=== PATIENT | female | born 1985 | race Caucasian/White ===

== ENCOUNTER 2017-03-11 08:17 | Emergency (ER) | payer MEDICARE, MEDICAID ==
[~2017-03-11] VITALS: Ht 157.5 cm; Wt 80.7 kg
[~2017-03-11 08:17] MED LIST: ADAL20KI; HYDR50CA2; LITHIUM; SERT25TA84
[2017-03-11] MEDS ORDERED: HYDROcodone-ACET 10/325MG TAB PO ONE (09:00)
[2017-03-11] MEDS ORDERED: LEVOFLOXACIN 500 MG TAB PO ONE (09:00)
[2017-03-11] MEDS ORDERED: MORPHINE SULF INJ 2 MG/ML SYRINGE 1ML IV ONE (12:30)
[2017-03-11] MEDS ORDERED: ONDANSETRON HCL 4 MG/2 ML VIAL IV ONE (12:30)
[2017-03-11 12:44] VITALS: BP 119/72
== END 2017-03-11 12:52 | disposition short-term general hospital (02) ==
LOC: ER 08:17 → EDBD 08:17 → ER 12:52
DX: S70.352A Superficial foreign body, left thigh, initial encounter (principal); F31.9 Bipolar disorder, unspecified; W22.8XXA Striking against or struck by other objects, initial encounter; Y93.89 Activity, other specified; Y99.8 Other external cause status; Y92.89 Other specified places as the place of occurrence of the external cause
CPT/HCPCS: 73502; 96374; 96375; 99285; J2270; J2405

== ENCOUNTER 2017-05-21 07:10 | Emergency (ER) | payer MEDICARE, MEDICAID ==
[~2017-05-21] VITALS: Ht 157.5 cm; Wt 79.8 kg
[2017-05-21 07:21] VITALS: BP 147/89
== END 2017-05-21 08:24 | disposition home or self-care (01) ==
LOC: ER 07:10
DX: J20.9 Acute bronchitis, unspecified (principal); F32.9 Major depressive disorder, single episode, unspecified; R11.10 Vomiting, unspecified

== ENCOUNTER 2017-07-26 12:40 | Observation (INO) | payer MEDICARE, MEDICAID ==
[~2017-07-26] VITALS: Ht 157.5 cm; Wt 90.7 kg
[2017-07-26] MEDS ORDERED: SODIUM CHLORIDE 0.9% 1,000 ML IVB ONE (13:49)
[2017-07-26] MEDS ORDERED: ONDANSETRON HCL 4 MG/2 ML VIAL IV ONE (14:00)
[2017-07-26 14:48] LABS: Basophils # (auto) 0 uL; Basophils % (auto) 0.1 % (0.0-2.0); Eosinophils # (auto) 0 uL; Hemoglobin 15.3 g/dL (12.2-16.2); Lymphocytes # (auto) 1.2 uL; Lymphocytes % (auto) 8.3 % (10.0-50.0); Mean Corpuscular Hgb Conc. 33.2 g/dL (32.0-36.0); Mean Corpuscular Volume 93.1 fL (80.0-100.0); Monocytes # (auto) 0.5 uL; Monocytes % (auto) 3.1 % (0.0-12.0); Neutrophils # (auto) 13.3 uL; Neutrophils % (auto) 88.5 % (37.0-80.0); Nucleated Red Blood Cells % 0.1 %; Platelet Count (auto) 305 10^3/uL (140-450); Red Blood Cells 4.93 10^6/uL (4.0-5.20); Red Cell Distribution Width 13.1 % (11.8-14.3); White Blood Cell 15.1 10^3/uL (4.4-10.8)
[2017-07-26 15:10] LABS: Albumin 4.1 g/dL (3.4-5.0); BUN/Creatinine Ratio 21.3; Bilirubin, Total 0.4 mg/dL (0.2-1.0); Calcium 9.3 mg/dL (8.5-10.1); Potassium 4.2 mmol/L (3.5-5.1); Total Protein 7.9 g/dL (6.4-8.2)
[2017-07-26] MEDS ORDERED: PANTOPRAZOLE 40 MG/10 ML VIAL IV ONE (15:45)
[2017-07-26] MEDS ORDERED: PROMETHAZINE HCL 25 MG/ML 1ML IV ONE (15:45)
[2017-07-26 16:05] VITALS: BP 115/69
[2017-07-26 16:15] LABS: Urine Bacteria NONE SEEN /hpf (None Seen); Urine Blood 2+ /uL (Negative); Urine Mucus FEW (None Seen); Urine Specific Gravity 1.028 (1.001-1.035); Urine WBC 10 /hpf (0 - 5)
[2017-07-26 16:30] LABS: Alcohol, Urine < 3.0 mg/dL (0-5); Amphetamine Screen, Urine NEGATIVE (NEGATIVE); Barbiturate Scree,Urine NEGATIVE (NEGATIVE); Benzodiazephine Screen, Urine NEGATIVE (NEGATIVE); Cannabinoid Screen, Urine POSITIVE (NEGATIVE); Cocaine Screen, Urine NEGATIVE (NEGATIVE); Opiate Scree,Urine NEGATIVE (NEGATIVE); Phencyclidine Screen, Urine NEGATIVE (NEGATIVE)
== END 2017-07-26 17:21 | disposition home or self-care (01) | DRG 392 ==
LOC: ER 12:40 → EDBD 12:40 → OVERFLOW 13:50 → ER 17:21
PROVIDERS: ADMIT Family Medicine; ATTEND Family Medicine
DX: R11.2 Nausea with vomiting, unspecified (principal); F10.20 Alcohol dependence, uncomplicated; F12.10 Cannabis abuse, uncomplicated; Z82.49 Family history of ischemic heart disease and other diseases of the circulatory system
CPT/HCPCS: 36415; 80053; 80307; 80320; 81001; 84702; 85025; 96361; 96374; 96375; 99285; C9113; G0378; J2405; J2550; J7030

== ENCOUNTER 2020-09-27 05:05 | Emergency (ER) | payer MEDICARE, MEDICAID ==
[~2020-09-27] VITALS: Ht 160 cm; Wt 75.7 kg
[2020-09-27] MEDS ORDERED: ONDANSETRON ODT 4 MG TAB PO ONE (06:00)
[2020-09-27] MEDS ORDERED: SODIUM CHLORIDE 0.9% 1,000 ML IV ONE (06:30)
[2020-09-27 08:02] LABS: Basophils # (auto) 0.1 10 ^3/uL (0-0.2); Basophils % (auto) 0.5 % (0.0-2.0); Eosinophils # (auto) 0.3 10 ^3/uL (0-0.8); Eosinophils % (auto) 1.9 % (0.0-7.0); Hematocrit 38.8 % (36.0-46.0); Lymphocytes # (auto) 2.6 10 ^3/uL (0.4-5.4); Lymphocytes % (auto) 19.1 % (10.0-50.0); Mean Corpuscular Hemoglobin 30.4 pg (28.0-32.0); Mean Corpuscular Hgb Conc. 33.6 g/dL (32.0-36.0); Mean Corpuscular Volume 90.6 fL (80.0-100.0); Monocytes # (auto) 0.7 10 ^3/uL (0-1.3); Monocytes % (auto) 5.5 % (0.0-12.0); Platelet Count (auto) 339 10^3/uL (140-450); Red Blood Cells 4.28 10^6/uL (4.0-5.20); Red Cell Distribution Width 14.7 % (11.8-14.3); White Blood Cell 13.7 10^3/uL (4.4-10.8)
[2020-09-27 08:20] LABS: Albumin 3.5 g/dL (3.4-5.0); Calcium 8.9 mg/dL (8.5-10.1); Magnesium 2.3 mg/dL (1.6-2.6)
[2020-09-27 08:23] LABS: BUN/Creatinine Ratio 31.8; Bilirubin, Total 0.2 mg/dL (0.2-1.0); Total Protein 6.7 g/dL (6.4-8.2)
[2020-09-27 08:38] LABS: Beta HCG, Quantitative < 1 mlU/mL (1-3)
[2020-09-27] MEDS ORDERED: HYDROcodone-ACET 5/325MG TAB PO ONE (09:30)
[2020-09-27] MEDS ORDERED: IOHEXOL 350 MG/ML 100ML IJ ONE (10:54)
[2020-09-27] MEDS ORDERED: diphenhdrAMINE HCL 50 MG/1 ML VL IV ONE (12:30)
[2020-09-27] MEDS ORDERED: DexAMETHasone SOD PHOS 4 MG/1ML SDV INJ IV ONE (12:30)
[2020-09-27 13:28] VITALS: BP 114/64
== END 2020-09-27 13:55 | disposition home or self-care (01) ==
LOC: ER 05:05
DX: S00.83XA Contusion of other part of head, initial encounter (principal); S50.02XA Contusion of left elbow, initial encounter; S80.01XA Contusion of right knee, initial encounter; F31.32 Bipolar disorder, current episode depressed, moderate; R55 Syncope and collapse; F17.210 Nicotine dependence, cigarettes, uncomplicated; W19.XXXA Unspecified fall, initial encounter; Y93.89 Activity, other specified; Y92.099 Unspecified place in other non-institutional residence as the place of occurrence of the external cause; Y99.8 Other external cause status
CPT/HCPCS: 36415; 70450; 70486; 71046; 71275; 72125; 73080; 73562; 80053; 83735; 84443; 84702; 85025; 85379; 93005; 96361; 96374; 96375; 99285; J1100; J1200; J7030; Q0162; Q9967

== ENCOUNTER 2020-10-09 06:39 | Emergency (ER) | payer MEDICARE, MEDICAID ==
[~2020-10-09] VITALS: Ht 157.5 cm; Wt 77.1 kg
[2020-10-09] MEDS ORDERED: ASPirin 81 mg TAB PO ONE (07:30)
[2020-10-09 08:07] LABS: Basophils # (auto) 0.1 10 ^3/uL (0-0.2); Basophils % (auto) 0.4 % (0.0-2.0); Eosinophils # (auto) 0.4 10 ^3/uL (0-0.8); Eosinophils % (auto) 1.8 % (0.0-7.0); Hematocrit 39.9 % (36.0-46.0); Hemoglobin 13.4 g/dL (12.2-16.2); Lymphocytes # (auto) 1.9 10 ^3/uL (0.4-5.4); Lymphocytes % (auto) 9.3 % (10.0-50.0); Mean Corpuscular Hemoglobin 30.5 pg (28.0-32.0); Mean Corpuscular Hgb Conc. 33.6 g/dL (32.0-36.0); Monocytes # (auto) 1.1 10 ^3/uL (0-1.3); Monocytes % (auto) 5.7 % (0.0-12.0); Neutrophils # (auto) 16.6 10 ^3/uL (1.6-8.6); Neutrophils % (auto) 82.8 % (37.0-80.0); Platelet Count (auto) 314 10^3/uL (140-450); Red Blood Cells 4.38 10^6/uL (4.0-5.20)
[2020-10-09 08:36] LABS: Albumin 3.3 g/dL (3.4-5.0); Anion Gap 6 (5-15); Blood Urea Nitrogen 15 mg/dL (7-18); Calcium 8.9 mg/dL (8.5-10.1); Carbon Dioxide 23 mmol/L (21-32); Chloride 110 mmol/L (98-107); Glucose 81 mg/dL (74-106); Potassium 3.8 mmol/L (3.5-5.1); Sodium 139 mmol/L (136-145)
[2020-10-09 08:43] LABS: Alanine Aminotransferase 14 U/L (13-56); Alkaline Phosphatase 90 U/L (45-117); Aspartate Aminotransferase 7 U/L (15-37); Bilirubin, Total 0.3 mg/dL (0.2-1.0); GFR African American 106 mL/min; GFR Non-African American 88 mL/min; Total Protein 6.6 g/dL (6.4-8.2)
[2020-10-09] MEDS ORDERED: levoFLOXacin 500MG 100 ML IV ONE (09:00)
[2020-10-09 09:55] LABS: Urine Bacteria NONE SEEN /hpf (None Seen); Urine Blood 3+ /uL (Negative); Urine Specific Gravity 1.018 (1.001-1.035); Urine WBC 2 /hpf (0 - 5)
[2020-10-09 10:32] VITALS: BP 118/73
== END 2020-10-09 10:38 | disposition home or self-care (01) ==
LOC: ER 06:39
DX: R07.89 Other chest pain (principal); F41.9 Anxiety disorder, unspecified; F17.210 Nicotine dependence, cigarettes, uncomplicated; Z88.1 Allergy status to other antibiotic agents
CPT/HCPCS: 36415; 71045; 80053; 81001; 84484; 85025; 93005; 96365; 99285; J1956

== ENCOUNTER 2022-01-17 15:13 | Emergency (ER) | payer MEDICARE, MEDICAID ==
[~2022-01-17] VITALS: Ht 160 cm; Wt 68.1 kg
[2022-01-17 16:35] LABS: Basophils # (auto) 0.1 10 ^3/uL (0-0.2); Hemoglobin 12.7 g/dL (12.2-16.2); Monocytes # (auto) 0.9 10 ^3/uL (0-1.3)
[2022-01-17 16:38] LABS: Basophils % (auto) 0.4 % (0.0-2.0); Eosinophils # (auto) 0.1 10 ^3/uL (0-0.8); Eosinophils % (auto) 0.7 % (0.0-7.0); Hematocrit 41.7 % (36.0-46.0); Lymphocytes # (auto) 2.3 10 ^3/uL (0.4-5.4); Lymphocytes % (auto) 15.3 % (10.0-50.0); Mean Corpuscular Hemoglobin 24.4 pg (28.0-32.0); Mean Corpuscular Hgb Conc. 30.5 g/dL (32.0-36.0); Monocytes % (auto) 5.9 % (0.0-12.0); Neutrophils # (auto) 11.6 10 ^3/uL (1.6-8.6); Neutrophils % (auto) 77.7 % (37.0-80.0); Red Blood Cells 5.21 10^6/uL (4.0-5.20); Red Cell Distribution Width 19.8 % (11.8-14.3); White Blood Cell 14.9 10^3/uL (4.4-10.8)
[2022-01-17 16:53] LABS: Albumin 4.6 g/dL (3.4-5.0); Calcium 9.3 mg/dL (8.5-10.1); Potassium 3.7 mmol/L (3.5-5.1)
[2022-01-17 16:56] LABS: BUN/Creatinine Ratio 25.5
[2022-01-17 16:58] LABS: Bilirubin, Total 0.5 mg/dL (0.2-1.0); Total Protein 8.9 g/dL (6.4-8.2)
[2022-01-17 18:32] LABS: Amphetamine Screen, Urine NEGATIVE (NEGATIVE)
[2022-01-17 18:33] LABS: Urine Bacteria NONE SEEN /hpf (None Seen); Urine Blood 3+ /uL (Negative); Urine Mucus FEW (None Seen); Urine Specific Gravity 1.042 (1.001-1.035); Urine WBC 2 /hpf (0 - 5)
[2022-01-17 18:40] LABS: Alcohol, Urine < 3.0 mg/dL (0-10); Barbiturate Scree,Urine NEGATIVE (NEGATIVE); Benzodiazephine Screen, Urine NEGATIVE (NEGATIVE); Cannabinoid Screen, Urine POSITIVE (NEGATIVE); Cocaine Screen, Urine NEGATIVE (NEGATIVE); Opiate Scree,Urine NEGATIVE (NEGATIVE); Phencyclidine Screen, Urine NEGATIVE (NEGATIVE)
[2022-01-17] MEDS ORDERED: HALOPERIDOL 1 MG TAB PO ONE (20:15)
[2022-01-18 01:28] VITALS: BP 130/90
== END 2022-01-18 01:45 | disposition home or self-care (01) ==
LOC: ER 15:13
DX: R11.2 Nausea with vomiting, unspecified (principal); R10.11 Right upper quadrant pain; R19.7 Diarrhea, unspecified; R10.2 Pelvic and perineal pain; F17.210 Nicotine dependence, cigarettes, uncomplicated; Z79.899 Other long term (current) drug therapy; Z88.1 Allergy status to other antibiotic agents
CPT/HCPCS: 36415; 76705; 80053; 80307; 81001; 81025; 83690; 84702; 85025